=== PATIENT | male | born 1945 | race Caucasian/White ===

== ENCOUNTER 2017-12-21 09:24 | Emergency (ER) | payer MEDICARE ==
[~2017-12-21] VITALS: Ht 188 cm; Wt 90.9 kg
[2017-12-21] MEDS ORDERED: FOSI10 PO (09:55)
[2017-12-21] MEDS ORDERED: DIGO-44 PO (09:55)
[2017-12-21 12:00] VITALS: BP 156/107
== END 2017-12-21 12:50 | disposition home or self-care (01) ==
LOC: EMS 09:26
DX: R10.13 Epigastric pain (principal); R07.9 Chest pain, unspecified
CPT/HCPCS: 71275; 99284